=== PATIENT | female | born 1965 | race Caucasian/White ===

== ENCOUNTER 2021-04-20 19:18 | Emergency (ER) | payer OTHER ==
[2021-04-20 19:28] VITALS: BP 143/67; PULSE 61; TEMP 98.1; BMI 34.3
== END 2021-04-20 22:31 | disposition home or self-care (01) ==
LOC: JER 19:18
DX: S00.83XA Contusion of other part of head, initial encounter (principal); S46.912A Strain of unspecified muscle, fascia and tendon at shoulder and upper arm level, left arm, initial encounter
CPT/HCPCS: 70450-TC; 99284-25